=== PATIENT | female | born 1980 | race Caucasian/White ===

== ENCOUNTER 2019-11-05 06:59 | Emergency (ER) | payer MEDICAID, SELFPAY ==
[2019-11-05 07:02] VITALS: BP 156/98; PULSE 100; RESP 18; TEMP 36.9; O2SAT 97; BMI 43.4
--- NOTE | 2019-11-05 07:11 | CTR_ITS ---
PROCEDURE INFORMATION: Exam: CT Neck With Contrast Exam date and time: 11/05/2019 7:41 AM Age: 39 years old Clinical indication: Neck pain and painful swallowing and throat pain; Additional info: Trouble swallowing, L sided throat pain, hoarseness TECHNIQUE: Imaging protocol: Computed tomography images of the neck with intravenous contrast. Radiation optimization: All CT scans at this facility use at least one of these dose optimization techniques: automated exposure control; mA and/or kV adjustment per patient size (includes targeted exams where dose is matched to clinical indication); or iterative reconstruction. Contrast material: OMNI 300; Contrast volume: 95 ml; Contrast route: INTRAVENOUS (IV); COMPARISON: No relevant prior studies available. RADIATION DOSE METRICS: Total DLP (mGy-cm): 817 FINDINGS: Nasopharynx: Unremarkable. Oropharynx: There is a left tonsillar abscess measuring approximately 3.2 cm x 1.3 cm x 1.4 cm in size. This causes mass effect upon the posterolateral left oropharyngeal airway. Hypopharynx: See Retropharyngeal space finding. Larynx: Unremarkable. Normal epiglottis. Retropharyngeal space: There is a left posterolateral retropharyngeal abscess measuring approximately 2.4 cm x 8 mm x 5 mm in size. There is surrounding soft tissue edema/inflammation. This is causing compression of the left piriform sinus and posterolateral left hypopharyngeal airway. Submandibular/Parotid glands: Normal. Glands are normal in size. Thyroid: There is a 9 mm cyst or nodule in the right lobe of the thyroid. Lymph nodes: There is mild bilateral cervical lymphadenopathy, more prominently on the left, likely reactive in nature. Calcified right hilar and mediastinal lymph nodes from prior granulomatous disease. Trachea: The trachea has a normal caliber. Lungs: Calcified pulmonary granulomas in the right upper lobe. Bones/joints: No acute osseous abnormality. Vasculature: No carotid or vertebral artery stenosis or occlusion. Soft tissues: No acute superficial soft tissue abnormality. CT/CT neck w con* [id number] IMPRESSION: Left tonsillar and retropharyngeal abscess. COMMENTS: Consistent with the [employer]'s Incidental Findings Committee white paper (J Am Jocelyne Radiol 2015): In patients aged 35 years and older with an incidental thyroid nodule equal to or greater than 1.[address], MRI or extrathyroidal US, further evaluation with dedicated thyroid US is recommended for patients with normal life expectancy and without comorbidities. For smaller nodules without suspicious features, no further evaluation or follow up is recommended. Radiation Dose CTDIVOL = (mGy): DLP = 817 (mGy-cm)
--- NOTE | 2019-11-05 07:12 | ED_ITS ---
HPI - General Adult General: Chief complaint: Dental/Oral Stated complaint: SWOLLEN NECK MOVED UP TO EAR AND LEFT SIDE OF FACE Time Seen by Provider: 11/05/19 07:04 Course Vital Signs: Vital signs: Vital Signs Temperature 98.4 F 11/05/19 07:02 Pulse Rate 100 11/05/19 07:02 Respiratory Rate 18 11/05/19 07:02 Blood Pressure 156/98 11/05/19 07:02 Pulse Oximetry 97 11/05/19 07:02 Coding Level of Care Code ED Cost Report Clerk for Aquilino Tian
--- NOTE | 2019-11-05 07:13 | W.ED.DENTAL ---
HPI - Dental/Oral General: Chief complaint: Dental/Oral Stated complaint: SWOLLEN NECK MOVED UP TO EAR AND LEFT SIDE OF FACE Time Seen by Provider: 11/05/19 07:04 Source: patient Mode of arrival: ambulatory Limitations: no limitations History of Present Illness: HPI Narrative: Patient is a 39-year-old female who presents to ED today with a complaint of left-sided neck pain has been present for the past 4 to 5 days. Patient was initially seen at [facility] on and swabbed for strep which was negative. She was given oral steroids and discharged home. Patient states she feels like the left side of her neck is swollen as well as her face. She is having hoarseness. She tells me she is having difficulty swallowing. [facility] was supposed to set her up with ENT however she has not heard anything regarding this appointment. Patient reports radiation up into her left ear and into her teeth however she does not complain specifically of pain to these areas. She does report a similar episode several months ago. Onset (ago): day(s) Duration: constant Relieving factors: nothing Exacerbating factors: nothing Associated symptoms: Reports fever(s) (reports fever of 101 at 2am this morning ) and odynophagia; Denies ear or mastoid pain Review of Systems Const: Reports: fever(s) (reports fever of 101 at 2am this morning ); Denies: chills, body aches, change in appetite, change in weight, fatigue or malaise Eyes: Denies: change in vision, blurry vision, photophobia, floaters or seeing flashes ENMT: Reports: throat pain, odynophagia and hoarseness; Denies: swelling of lips/tongue, oral sores, dental pain, ear or mastoid pain, ear discharge, change in hearing, tinnitus, disequilibrium, nasal discharge, nasal congestion, epistaxis, post nasal drip or sinus pain Card: Denies: chest pain Resp: Denies: dyspnea GI: Denies: nausea or vomiting Musc: Denies: neck pain Skin/Breast: Denies: rash Neuro: Denies: headache(s), numbness in extremities, weakness in extremities or sensory changes Physical Exam Const: COMMON NORMALS: no acute distress, patient oriented x3, no limitations and alert NUTRITIONAL APPEARANCE: obese ORIENTATION/CONSCIOUSNESS: Yes awake, Yes oriented to person, Yes oriented to place and Yes oriented to time HENMT: COMMON NORMALS: normocephalic, atraumatic, hearing grossly normal bilaterally, external ears normal, EAC's normal, TM's normal bilaterally, Normal external nose present, Normal nasal mucous membranes and turbinates present, moist oral mucous membranes and gingiva normal HEAD & SCALP: normal to inspection, normocephalic and atraumatic FACE & SINUS: normal facial exam, sinuses nontender and face symmetric NOSE: Normal external nose present, Normal nares present, No nasal polyps present, Normal nasal mucous membranes and turbinates present and No nasal discharge present EXTERNAL EAR: Yes external ears normal EXTERNAL AUDITORY CANAL: EAC's normal TYMPANIC MEMBRANE: TM's normal bilaterally MOUTH: Normal oral and palatal mucosa present, lip normal, tongue normal and other (hoarseness ) THROAT: other (see below) OTHER: no swelling to soft palate appreciated; uvula is midline and non-swollen; she does appear to have some swelling to her posterior tonsillar pillar/posterior wall of oropharynx Eye: COMMON NORMALS: Equal, round and reactive pupils present, EOMs intact bilaterally, conjunctivae normal and no scleral icterus GENERAL EYE: appearance normal, both eyes and all related structures CONJUNCTIVA: Yes conjunctivae normal PUPIL: Yes Equal, round and reactive pupils present Neck/C-Spine: COMMON NORMALS: full ROM and no lymphadenopathy OTHER: I do not appreciate any neck swelling Neuro: ANDREW COMA SCALE: document GCS findings Andrew coma scale eye opening: Spontaneous Andrew coma scale verbal response: Orientated Hutchinson coma scale motor response: Obey commands Hutchinson coma scale total score: 15 COMMON NORMALS: patient oriented x3 and CN's II-XII intact bilaterally SENSORIUM/ORIENTATION: Yes alert, Yes oriented to person, Yes oriented to place and Yes oriented to time Skin: COMMON NORMALS: no rashes or lesions noted GENERAL SKIN EXAM: no rashes or lesions noted Course Consultations: Consultation #1: [facility]; recommends oral doxycycline and will see in office this week Vital Signs: Vital signs: Vital Signs Temperature 98.4 F 11/05/19 07:02 Pulse Rate 100 11/05/19 07:02 Respiratory Rate 18 11/05/19 07:02 Blood Pressure 156/98 11/05/19 07:02 Pulse Oximetry 97 11/05/19 07:02 MDM - Dental/Oral MDM Narrative: Medical decision making narrative: Clinically patient appears well. She has hoarseness to her voice but is otherwise speaking normally. She has been able to control her saliva and has continued to eat and drink. I have discussed CT findings with Dr. Dugan with [facility]. He feels this can be managed with oral doxycycline and will see her in office this week. Her vital signs are stable. She does have a white count of 20.9 some of that may be related to her recent steroid use. Strict return to ED precautions given. Lab Data: Labs: Lab Results 11/05/19 11/05/19 11/05/19 Range/Units 07:24 07:24 07:24 WBC 20.9 H (4.0-10.0) 10^3/ uL RBC 3.88 L (4.1-5.3) 10^6/u L Hgb 13.5 (11.5-15.3) g/dL Hct 40.7 (37.0-47.0) % MCV 104.9 H (81-99) fL MCH 34.8 H (28.0-34.0) pg MCHC 33.2 (30.0-36.0) g/dL RDW 12.7 (12.1-15.1) % Plt Count 267 (130-400) 10^3/c mm MPV 11.0 H (7.4-10.4) fL Neut % (Auto) 78.7 % Lymph % (Auto) 12.1 % Atlantic % (Auto) 8.2 % Eos % (Auto) 0.3 % Baso % (Auto) 0.2 % Neut # (Auto) 16.47 H (1.8-7.7) 10^3/u L Lymph # (Auto) 2.5 (0.8-4.8) 10^3/u L Atlantic # (Auto) 1.7 H (0.2-0.9) 10^3/u L Eos # (Auto) 0.1 (0.0-0.8) 10^3/u L Baso # (Auto) 0.1 (0.0-0.1) 10^3/u L Nucleated RBC % (a uto) 0 % Nucleated RBCs # 0.0 /100WBC Sodium 139 (136-145) mmol/L Potassium 4.1 (3.5-5.1) mmol/L Chloride 104 (98-107) mmol/L Carbon Dioxide 28 (22-29) mmol/L Anion Gap 11.1 (5-19) BUN 9 (6-20) mg/dL Creatinine 0.9 (0.5-0.9) mg/dL GFR Calculation 70.1 L (90-130) mL/min Glucose 120 H (65-115) mg/dL Calculated Osmolal ity 285 (285-295) mOsm/k g Lactic Acid 1.3 (0.5-2.2) mmol/L Calcium 9.5 (8.5-10.5) mg/dL Total Bilirubin 0.8 (0.15-1.2) mg/dL AST 13 (0-32) U/L ALT 14 (0-33) U/L Alkaline Phosphata se 81 (35-105) IU/L Total Protein 7.1 (6.6-8.7) g/dL Albumin 4.0 (3.5-5.2) g/dL Globulin 3.1 (1.3-4.6) g/dL Imaging Data^: CT facial: Radiologist's impression: [place] [address] CT Scan Report Signed Patient: Cady Cuellar Unit #: [id number] : 1980 Age/Sex: 39 / F ADM Date: 11/05/19 Loc: ER Room/Bed: Attending Dr: Ordering Provider/Ordering MD: Cathi Pollock Date of Service: 11/05/19 Procedure(s): CT neck w con* [id number] Accession Number(s): [id number] Report Number: [id number] PROCEDURE INFORMATION: Exam: CT Neck With Contrast Exam date and time: 11/05/2019 7:41 AM Age: 39 years old Clinical indication: Neck pain and painful swallowing and throat pain; Additional info: Trouble swallowing, L sided throat pain, hoarseness TECHNIQUE: Imaging protocol: Computed tomography images of the neck with intravenous contrast. Radiation optimization: All CT scans at this facility use at least one of these dose optimization techniques: automated exposure control; mA and/or kV adjustment per patient size (includes targeted exams where dose is matched to clinical indication); or iterative reconstruction. Contrast material: OMNI 300; Contrast volume: 95 ml; Contrast route: INTRAVENOUS (IV); COMPARISON: No relevant prior studies available. RADIATION DOSE METRICS: Total DLP (mGy-cm): 817 FINDINGS: Nasopharynx: Unremarkable. Oropharynx: There is a left tonsillar abscess measuring approximately 3.2 cm x 1.3 cm x 1.4 cm in size. This causes mass effect upon the posterolateral left oropharyngeal airway. Hypopharynx: See Retropharyngeal space finding. Larynx: Unremarkable. Normal epiglottis. Retropharyngeal space: There is a left posterolateral retropharyngeal abscess measuring approximately 2.4 cm x 8 mm x 5 mm in size. There is surrounding soft tissue edema/inflammation. This is causing compression of the left piriform sinus and posterolateral left hypopharyngeal airway. Submandibular/Parotid glands: Normal. Glands are normal in size. Thyroid: There is a 9 mm cyst or nodule in the right lobe of the thyroid. Lymph nodes: There is mild bilateral cervical lymphadenopathy, more prominently on the left, likely reactive in nature. Calcified right hilar and mediastinal lymph nodes from prior granulomatous disease. Trachea: The trachea has a normal caliber. Lungs: Calcified pulmonary granulomas in the right upper lobe. Bones/joints: No acute osseous abnormality. Vasculature: No carotid or vertebral artery stenosis or occlusion. Soft tissues: No acute superficial soft tissue abnormality. CT/CT neck w con* [id number] IMPRESSION: Left tonsillar and retropharyngeal abscess. COMMENTS: Consistent with the [employer]'s Incidental Findings Committee white paper (J Am Jocelyne Radiol 2015): In patients aged 35 years and older with an incidental thyroid nodule equal to or greater than 1.[address], MRI or extrathyroidal US, further evaluation with dedicated thyroid US is recommended for patients with normal life expectancy and without comorbidities. For smaller nodules without suspicious features, no further evaluation or follow up is recommended. Radiation Dose CTDIVOL = (mGy): DLP = 817 (mGy-cm) Dictated By: Ger Palmer Signed By: Ger Palmer Signed Date/Time: 11/05/19830 DD/ 9 Discharge Plan Discharge Patient Disposition: Home Clinical Impression: Abscess, retropharyngeal, Tonsillar abscess Condition: Stable Prescriptions: New doxycycline monohydrate 100 mg capsule 100 mg PO Q12H 10 Days Qty: 20 RF: 0 Discharge Orders: Discharge Order (Routine); Ordered 11/05/19 Ordered By: Cathi Pollock Activity Restrictions/Additional Instructions: Fill your antibiotics and begin them immediately. You need to return to the emergency department immediately for trouble swallowing, inability to control your own saliva, or inability to eat or drink. [facility] should be contacting you shortly to set you up with an appointment for next week with Dr. Dugan. Coding Level of Care Code ED In Store Marketer for [place] Fwd Exam Detailed
[2019-11-05 07:30] LABS: Basophils # 0.1 10^3/uL (0.0-0.1); Basophils % 0.2 %; Eosinophils # 0.1 10^3/uL (0.0-0.8); Eosinophils % 0.3 %; Hematocrit 40.7 % (37.0-47.0); Hemoglobin 13.5 g/dL (11.5-15.3); Lymphocytes # 2.5 10^3/uL (0.8-4.8); Lymphocytes % 12.1 %; Mean Corpuscular HGB Conc 33.2 g/dL (30.0-36.0); Mean Corpuscular Hemoglobin 34.8 pg (28.0-34.0); Mean Corpuscular Volume 104.9 fL (81-99); Monocytes # 1.7 10^3/uL (0.2-0.9); Monocytes % 8.2 %; Neutrophils # 16.47 10^3/uL (1.8-7.7); Neutrophils % 78.7 %; Nucleated Red Blood Cells % 0 %; Platelet Count 267 10^3/cmm (130-400); Red Blood Count 3.88 10^6/uL (4.1-5.3); Red Cell Distribution Width 12.7 % (12.1-15.1); White Blood Count 20.9 10^3/uL (4.0-10.0)
[2019-11-05] MEDS: dexamethasone 10 mg/mL INJ 8 MG IV (07:38)
[2019-11-05 07:50] LABS: Alanine Aminotransferase 14 U/L (0-33); Alkaline Phosphatase 81 IU/L (35-105); Anion Gap 11.1 (5-19); Aspartate Amino Transferase 13 U/L (0-32); Blood Urea Nitrogen 9 mg/dL (6-20); Calcium 9.5 mg/dL (8.5-10.5); Carbon Dioxide 28 mmol/L (22-29); Chloride 104 mmol/L (98-107); Globulin 3.1 g/dL (1.3-4.6); Glomerular Filtration Rate 70.1 mL/min (90-130); Glucose 120 mg/dL (65-115); Osmolality Calculated 285 mOsm/kg (285-295); Potassium 4.1 mmol/L (3.5-5.1); Sodium 139 mmol/L (136-145); Total Bilirubin 0.8 mg/dL (0.15-1.2); Total Protein 7.1 g/dL (6.6-8.7)
[2019-11-05] MEDS: iohexol 300 mg/mL 100 mL Btl IV (08:02)
[2019-11-05 08:38] LABS: Lactic Sepsis W/Reflex 1.3 mmol/L (0.5-2.2)
[2019-11-05] MEDS: piperacillin-tazobactam 3.375 GM in sodium chloride 0.9% (plus) 50 ML IV (09:22)
[2019-11-05 09:58] VITALS: BP 125/80; PULSE 85; RESP 18; O2SAT 99
== END 2019-11-05 10:00 | disposition home or self-care (01) ==
PROVIDERS: Emergency Provider Physician Assistant
DX: J36 Peritonsillar abscess (principal)
CPT/HCPCS: 12345; 36415; 70491; 80053; 83605; 85025; 87040; 96365; 96375; 99283; J1100; J2543; Q9967

== ENCOUNTER 2019-11-08 15:57 | Outpatient (CLI) | payer MEDICAID, SELFPAY ==
--- NOTE | 2019-11-08 16:02 | CT_ITS ---
WS: [id number] CT NECK TECHNIQUE: Contrast-enhanced CT of the neck with coronal and sagittal reformatted images. CLINICAL INFORMATION: PERITONSILLAR ABSCESS, RETRPHARYNGEAL AND PARPHARNGEAL ABSCE COMPARISON: November 05, 2019 DLP: 2802.[address] scans at [facility] use at least one of these dose optimization techniques: automat ed exposure control; mA and/or kV adjustment per patient size (includes targeted exams where dose is matched to clinical indication); or iterative reconstruction. FINDINGS: Again seen is the left tonsillar and retropharyngeal abscess which is decreased in size since the yg or examination a November 26, 2017. Today the enhancing left tonsillar abscess measures approxima tely 0.7 x 0.9 x 1.8 cm. Left retropharyngeal abscess has significantly improved with retropharyngeal component significant smaller measuring 1.3 x 0.6 x 1.0 cm. Retropharyngeal fluid has improved. Impr liliana surrounding inflammatory stranding in the surrounding soft tissues. Persistent but improved mild mass effect on the oropharynx and hypopharynx. Partial effacement of the piriform sinus is improved. No critical airway stenosis. Normal epiglottis. Subglottic airway is patent. Small right thyroid nodule unchanged. Reactive cervic al lymph nodes. Mastoid air cells and paranasal sinuses are well aerated. Lung apices are well aerate d. Calcified granuloma right upper lobe. CT/CT neck w con* [id number] IMPRESSION: 1. Improving tonsillar and retropharyngeal abscess as described above. 2. Persistent but improved mass effect on the oropharynx and adjacent pharynge al soft tissues. No critical airway stenosis. 3. Small amount of retropharyngeal fluid extending down to C4-5 level. Normal mediastinum. 4. Small right thyroid nodule unchanged. 5. Reactive cervical lymphadenopathy.
[2019-11-08] MEDS: iohexol 300 mg/mL 100 mL Btl IV (16:18)
== END 2019-11-08 15:58 | disposition home or self-care (01) ==
LOC: RADWPI 16:00
PROVIDERS: PCP Internal Medicine; Visit Provider Otolaryngology
DX: J36 Peritonsillar abscess (principal); J39.2 Other diseases of pharynx; E04.1 Nontoxic single thyroid nodule; R59.0 Localized enlarged lymph nodes
CPT/HCPCS: 70491; Q9967

== ENCOUNTER 2019-12-01 14:03 | Outpatient (CLI) | payer MEDICAID, SELFPAY ==
--- NOTE | 2019-12-01 14:08 | CT_ITS ---
WS: [id number] CT NECK WITH CONTRAST HISTORY: PERITONSILLAR ABSCESS TECHNIQUE: Contiguous 5 mm axial images are performed through the neck with intravenous contrast. Sag ittal and coronal reformats are also submitted. All CT scans at [facility] use at least o ne of these dose optimization techniques: automated exposure control; mA and/or kV adjustment per pat ient size (includes targeted exams where dose is matched to clinical indication); or iterative recons truction. CONTRAST: CONTRAST: Omnipaque 300; 95 mL IV. DLP: 2891.28 mGycm COMPARISON: 11/08/2019 Previously described LEFT tonsillar peritonsillar retropharyngeal abscess and mass effect have resolv ed. Symmetric appearance to the parapharyngeal and retropharyngeal soft tissues. There is no enhancin g mass or residual fluid collection. Torus tubarius and fossa of Rosenmuller and parapharyngeal fat are normal. Small benign-appearing cervical chain lymph nodes. Most concerning lymph node is rounded and of decre ased attenuation measuring 7 mm at the level of the LEFT thyroid cartilage. Decreased in size since t he prior study. Mildly enlarged thyroid. Small RIGHT thyroid nodule. No osseous abnormalities. Visualized portions of the skull base demonstrate no abnormalities. Orbits and globes are within norm al limits. No soft tissue masses. Visualized paranasal sinuses and mastoid air cells are normal. Benign granuloma RIGHT apex. CT/CT neck w con* [id number] IMPRESSION: 1. Interval complete resolution of the LEFT tonsil, peritonsillar and retropha ryngeal abscess. 2. No compromise of the airway. 3. No worsening or adenopathy.
[2019-12-01] MEDS: iohexol 300 mg/mL 100 mL Btl IV (14:49)
== END 2019-12-01 14:04 | disposition home or self-care (01) ==
PROVIDERS: PCP Internal Medicine; Visit Provider Specialist
DX: J36 Peritonsillar abscess (principal)
CPT/HCPCS: 70491; Q9967

== ENCOUNTER 2019-12-29 20:00 | Outpatient (CLI) | payer MEDICAID, SELFPAY | END 2019-12-29 20:01 | disposition home or self-care (01) | LOC: SLEEP 12-30 08:41 | PROVIDERS: PCP Internal Medicine; Visit Provider Internal Medicine | DX: R06.83 Snoring (principal); R53.83 Other fatigue; G47.33 Obstructive sleep apnea (adult) (pediatric) | CPT/HCPCS: 95810 ==

== ENCOUNTER 2020-12-07 21:05 | Emergency (ER) | payer MEDICAID, SELFPAY ==
[2020-12-07 22:09] VITALS: BP 134/80; PULSE 92; RESP 18; TEMP 39.3; O2SAT 95; BMI 48.6
[2020-12-07] MEDS: acetaminophen 500 mg Tablet 1000 MG PO (22:18)
--- NOTE | 2020-12-07 22:27 | ECG_ITS ---
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 f
--- NOTE | 2020-12-08 00:52 | XRR_ITS ---
PROCEDURE INFORMATION: Exam: XR Chest Exam date and time: 12/08/2020 12:52 AM Age: 40 years old Clinical indication: Shortness of breath; Additional info: Fever, short of breath TECHNIQUE: Imaging protocol: XR of the chest. Views: 1 view. COMPARISON: CT neck w con* [id number] 12/01/2019 2:47 PM FINDINGS: Lungs: There is consolidation at the medial lung bases bilaterally which may be pneumonia. The lungs are otherwise clear. Pleural spaces: Unremarkable. No pleural effusion. No pneumothorax. Heart/Mediastinum: Unremarkable. No cardiomegaly. Bones/joints: Unremarkable. XR/XR chest 1V portable [id number] IMPRESSION: Possible bilateral medial lung base pneumonia.
--- NOTE | 2020-12-08 00:57 | ED_ITS ---
HPI - SOB/Dyspnea General: Chief Complaint: Shortness of Breath/Dyspnea Stated Complaint: Covid Symptoms Time Seen by Provider: 12/08/20 00:51 History of Present Illness: HPI Narrative: 40-year-old female comes in today with complaints of fever on and off for about 1 week. Patient believes she may have COVID-19. Patient started having some shortness of breath today. Patient appears well. Patient appears no acute distress. Associated symptoms: Reports fever(s) Review of Systems General: Reports: 10 or more systems reviewed and unremarkable except in HPI and below Const: Reports: fever(s) Resp: Reports: dyspnea PFSH ED PFSH: Medical History High cholesterol Surgical History H/O tubal ligation [place] teeth removed Family History Other Diabetes Heart attack Hypertension Social History Smoking and tobacco status: never smoked Current occupational status: employed Current occupation: [employer] Physical Exam Const: COMMON NORMALS: no acute distress and patient oriented x3 GENERAL APPEARANCE: cooperative HENMT: COMMON NORMALS: normocephalic, TM's normal bilaterally and Normal external nose present HEAD & SCALP: normal to inspection and normocephalic NOSE: Normal external nose present TYMPANIC MEMBRANE: TM's normal bilaterally MOUTH: Normal oral and palatal mucosa present Eye: GENERAL EYE: appearance normal, both eyes and all related structures Neck/C-Spine: COMMON NORMALS: full ROM Chest: COMMONS NORMALS: normal inspection of the chest Resp: COMMON NORMALS: normal respiratory effort EFFORT & INSPECTION: Yes able to speak in complete sentences Cardio: COMMON NORMALS: regular rate and regular rhythm RATE: regular rate RHYTHM: regular rhythm GI: COMMON NORMALS: non-tender : COMMON NORMALS: Yes no CVA tenderness BLADDER/KIDNEY EXAM: Yes no CVA tenderness Back/Pelvis: COMMON NORMALS: no CVA tenderness and thoracic and lumbar spine normal to inspection Extremity: COMMON NORMALS: normal to inspection Neuro: COMMON NORMALS: patient oriented x3 and moves all extremities Psych: COMMON NORMALS: mental status grossly normal and cooperative Skin: COMMON NORMALS: no rashes or lesions noted GENERAL SKIN EXAM: no rashes or lesions noted Course Vital Signs: Vital signs: Vital Signs Temperature 102.8 F H 12/07/20 22:09 Pulse Rate 89 12/08/20 01:30 Respiratory Rate 17 12/08/20 01:30 Blood Pressure 110/63 12/08/20 01:30 Pulse Oximetry 97 12/08/20 01:30 MDM - SOB/Dyspnea MDM Narrative: Medical decision making narrative: Patient comes in today for complaints of fever on and off for the last week. Patient reported some chills or chest discomfort today along with fever. Patient was concerned she may have had COVID-19. On exam lungs are clear to auscultation. Skin is warm and dry. Vital signs are normal except for elevated temperature of 102.8. Differential diagnosis includes pneumonia, COVID-19, viral syndrome. Pneumonia was noted on chest x-ray in bilateral [place]. COVID-19 test was negative. Laboratory values were unremarkable. Most likely this is a viral pneumonia probable COVID-19. We will send off a Covid PCR test for further evaluation. Patient be started on doxycycline to cover for a bacterial pneumonia. Patient was given 10 mg of dexamethasone chest discomfort. Patient was encouraged to drink plenty of fluids and use acetaminophen and ibuprofen for discomfort. Patient reported understanding agreed to plan. Albuterol was also prescribed for patient to help with cough and wheezing. Lab Data: Labs: Lab Results 12/08/20 12/08/20 12/08/20 00:57 02:00 02:13 WBC 4.9 10^3/uL 10^3/ uL (4.0-10.0) RBC 4.30 10^6/uL 10^6 /uL (4.1-5.3) Hgb 14.3 g/dL g/dL (11.5-15.3) Hct 43.1 % % (37.0-47.0) MCV 100.2 fl H fl (81-99) MCH 33.3 pg pg (28.0-34.0) MCHC 33.2 g/dL g/dL (30.0-36.0) RDW 13.2 % % (12.1-15.1) Plt Count 171 10^3/cmm 10^3 /cmm (130-400) MPV 11.7 fL H fL (7.4-10.4) Neut % (Auto) 64.1 % % Lymph % (Auto) 28.6 % % [place] % (Auto) 5.7 % % Eos % (Auto) 0.6 % % Baso % (Auto) 0.6 % % Neut # (Auto) 3.13 10^3/uL 10^3 /uL (1.8-7.7) Lymph # (Auto) 1.4 10^3/uL 10^3/ uL (0.8-4.8) [place] # (Auto) 0.3 10^3/uL 10^3/ uL (0.2-0.9) Eos # (Auto) 0.0 10^3/uL 10^3/ uL (0.0-0.8) Baso # (Auto) 0.0 10^3/uL 10^3/ uL (0.0-0.1) Nucleated RBC % (a uto) 0 % % Nucleated RBCs # 0.0 /100WBC /100W BC Sodium Potassium Chloride Carbon Dioxide Anion Gap BUN Creatinine GFR Calculation Glucose Calculated Osmolal ity Calcium Total Bilirubin AST ALT Alkaline Phosphata se C-Reactive Protein Total Protein Albumin Globulin Urine Color Yellow (Yellow) Urine Appearance Sl cloudy A (CLEAR) Urine pH 5 (5-7) Ur Specific Gravit y 1.015 (1.005-1.030) Urine Protein Neg (Negative) Urine Glucose (UA) Norm (Normal) Urine Ketones Negative (Negative) Urine Blood Neg (Negative) Urine Nitrate Negative (Negative) Urine Bilirubin Neg (Negative) Urine Urobilinogen Norm mg/dL mg/dL (Negative) Ur Leukocyte Malathi ase Negative (Negative) Urine RBC 0-4 /hpf H /hpf (0-2) Urine WBC 0-4 /hpf H /hpf (0-5) Ur Squamous Epith Cells 40-55 /hpf H /hpf (0-5) Amorphous Sediment Not Reportable Urine Bacteria 3+ /hpf H /hpf (NONE) SARS-CoV-2 Ag (Rap id) Negative (Negative) 12/08/20 02:13 WBC RBC Hgb Hct MCV MCH MCHC RDW Plt Count MPV Neut % (Auto) Lymph % (Auto) [place] % (Auto) Eos % (Auto) Baso % (Auto) Neut # (Auto) Lymph # (Auto) [place] # (Auto) Eos # (Auto) Baso # (Auto) Nucleated RBC % (a uto) Nucleated RBCs # Sodium 137 mmol/L mmol/L (136-145) Potassium 3.8 mmol/L mmol/L (3.5-5.1) Chloride 101 mmol/L mmol/L (98-107) Carbon Dioxide 24 mmol/L mmol/L (22-29) Anion Gap 15.8 (5-19) BUN 10 mg/dL mg/dL (6-20) Creatinine 0.7 mg/dL mg/dL (0.5-0.9) GFR Calculation 93.2 mL/min mL/mi n (90-130) Glucose 84 mg/dL mg/dL (65-115) Calculated Osmolal ity 282 mOsm/kg L mOs m/kg (285-295) Calcium 8.6 mg/dL mg/dL (8.5-10.5) Total Bilirubin 0.7 mg/dL mg/dL (0.15-1.2) AST 31 U/L U/L (0-32) ALT 24 U/L U/L (0-33) Alkaline Phosphata se 82 IU/L IU/L (35-105) C-Reactive Protein 30.4 mg/L H mg/L (0.0-4.9) Total Protein 7.3 g/dL g/dL (6.6-8.7) Albumin 3.9 g/dL g/dL (3.5-5.2) Globulin 3.4 g/dL g/dL (1.3-4.6) Urine Color Urine Appearance Urine pH Ur Specific Gravit y Urine Protein Urine Glucose (UA) Urine Ketones Urine Blood Urine Nitrate Urine Bilirubin Urine Urobilinogen Ur Leukocyte Malathi ase Urine RBC Urine WBC Ur Squamous Epith Cells Amorphous Sediment Urine Bacteria SARS-CoV-2 Ag (Rap id) Discharge Plan Discharge Patient Disposition: Home Clinical Impression: Bilateral pneumonia Qualifiers: Pneumonia type: due to unspecified organism Lung location: lower lobe of lung Qualified Code(s): J18.9 - Pneumonia, unspecified organism Condition: Stable Prescriptions: New doxycycline monohydrate 100 mg capsule 100 mg PO BID 7 Days Qty: 14 RF: 0 No Action atorvastatin 40 mg tablet 40 mg PO DAILY RF: 0 silver sulfadiazine 1 % cream 1 applic topical BID 14 Days Qty: 50 RF: 0 cephalexin 500 mg capsule 500 mg PO TID 7 Days Qty: 21 RF: 0 Discharge Orders: Discharge ED (Routine); Ordered 12/08/20 Ordered By: Aj Shah Discharge Diet: Usual diet Discharge Activity: Increase activity as tolerated Patient Instructions: Pneumonia (ED), Opioid Safety Activity Restrictions/Additional Instructions: Home and rest. Drink plenty of fluids. Use albuterol 2 puffs every 4 hours as needed for shortness of breath or cough. Take antibiotic doxycycline 100 mg twice a day for the next 7 days. Follow-up with primary care in 1 week for recheck. You have an outstanding COVID-19 PCR test. If the test result comes back positive you may still qualify for monoclonal antibodies and you can return to the ER or follow-up with primary care for administration information. Return to the ER for new concerns or worsening symptoms. Coding Level of Care Code ED [place] [employer] for [place] Fwd Exam Comprehensive
[2020-12-08 01:30] VITALS: BP 110/63; PULSE 89; RESP 17; O2SAT 97
[2020-12-08 01:33] LABS: SARS Covid-2 Antigen Negative (Negative)
[2020-12-08] MEDS: sodium chloride 0.9% 1,000 ML 999 ML IV (02:23)
[2020-12-08 02:47] LABS: Alanine Aminotransferase 24 U/L (0-33); Albumin Level 3.9 g/dL (3.5-5.2); Alkaline Phosphatase 82 IU/L (35-105); Anion Gap 15.8 (5-19); Aspartate Amino Transferase 31 U/L (0-32); Blood Urea Nitrogen 10 mg/dL (6-20); C Reactive Protein 30.4 mg/L (0.0-4.9); Calcium 8.6 mg/dL (8.5-10.5); Carbon Dioxide 24 mmol/L (22-29); Chloride 101 mmol/L (98-107); Creatinine Clr Calc Pharmacy 138.5442; Globulin 3.4 g/dL (1.3-4.6); Glomerular Filtration Rate 93.2 mL/min (90-130); Glucose 84 mg/dL (65-115); Osmolality Calculated 282 mOsm/kg (285-295); Potassium 3.8 mmol/L (3.5-5.1); Sodium 137 mmol/L (136-145); Total Bilirubin 0.7 mg/dL (0.15-1.2); Total Protein 7.3 g/dL (6.6-8.7)
[2020-12-08 02:47] LABS: Add Urine Microscopic? YES; Bilirubin Urine Neg (Negative); Blood Urine Neg (Negative); Glucose Urine UA Norm (Normal); Ketones Urine Negative (Negative); Leukocyte Esterase Urine Negative (Negative); Nitrate Urine Negative (Negative); Protein Urine Neg (Negative); Specific Gravity, Urine 1.015 (1.005-1.030); Urine Color Yellow (Yellow); Urobilinogen Urine Norm (Negative); pH Urine 5 (5-7)
[2020-12-08 02:48] LABS: Add Urine Culture? No; Bacteria Urine 3+ /hpf; RBC Urine 0-4 /hpf (0-2); Squamous Epithelial Cell Urine 40-55 /hpf (0-5); WBC Urine 0-4 /hpf (0-5)
[2020-12-08 02:56] LABS: Basophils % 0.6 %; Eosinophils % 0.6 %; Hematocrit 43.1 % (37.0-47.0); Hemoglobin 14.3 g/dL (11.5-15.3); Lymphocytes # 1.4 10^3/uL (0.8-4.8); Lymphocytes % 28.6 %; Mean Corpuscular HGB Conc 33.2 g/dL (30.0-36.0); Mean Corpuscular Hemoglobin 33.3 pg (28.0-34.0); Mean Corpuscular Volume 100.2 fl (81-99); Mean Platelet Volume 11.7 fL (7.4-10.4); Monocytes # 0.3 10^3/uL (0.2-0.9); Monocytes % 5.7 %; Neutrophils # 3.13 10^3/uL (1.8-7.7); Neutrophils % 64.1 %; Nucleated Red Blood Cells % 0 %; Platelet Count 171 10^3/cmm (130-400); Red Cell Distribution Width 13.2 % (12.1-15.1); White Blood Count 4.9 10^3/uL (4.0-10.0)
[2020-12-08] MEDS: dexamethasone 10 mg/mL INJ IVP (03:06)
[2020-12-08 03:26] VITALS: BP 130/74; PULSE 84; RESP 16; O2SAT 99
[2020-12-09 16:29] LABS: Quest SARS-CoV-2 RNA DETECTED (NOT DETECTED)
--- NOTE | 2020-12-10 08:56 | PC.NURSE ---
Informed pt of Positive COVID test
== END 2020-12-08 03:20 | disposition home or self-care (01) ==
PROVIDERS: Emergency Provider Nurse Practitioner Family
DX: U07.1 COVID-19 (principal); J12.82 Pneumonia due to coronavirus disease 2019
CPT/HCPCS: 71045; 80053; 81001; 85025; 86140; 87426; 87635; 93005; 96361; 96374; 99283; J1100; J3535; J7030

== ENCOUNTER → 2021-01-23 11:21 | Outpatient (BNVA) | payer MEDICAID, SELFPAY | PROVIDERS: Visit Provider Podiatrist Foot & Ankle Surgery | DX: M25.571 Pain in right ankle and joints of right foot (principal) | CPT/HCPCS: 73630 ==

== ENCOUNTER 2021-01-30 09:13 | Outpatient (CLI) | payer MEDICAID, SELFPAY ==
--- NOTE | 2021-01-30 09:21 | US_ITS ---
WS: [id number] Complete ABDOMINAL ULTRASOUND HISTORY: PANCREATIC LESION COMPARISON: None available. Liver: 18.0 cm in length. Increased echogenicity and coarse echotexture throughout the liver. Poor pe netration. Gallbladder: Normally distended with no gallstones, wall thickening or pericholecystic fluid. Gallbladder wall thickness: 0.2 cm. Pancreas: Pancreas is normal size. Very mild surface irregularity. There is no mass or abnormality al lyla the duct. Pancreatic duct is normal size. CBD: 0.4 cm. Right kidney: 11.9 cm x 6.4 cm x 5.2 cm. No mass, cortical thickening or hydronephrosis. Left kidney: 9.7 cm x 5.9 cm x 4.6 cm. No mass, cortical thickening or hydronephrosis. Spleen: Normal size and echogenicity. Abdominal aorta and IVC are within normal limits. No ascites. US/US abdomen complete* [id number] IMPRESSION: 1. Unremarkable pancreas. No pancreatic lesion is identified. As per history t here is a prior CT which indicated pancreatic lesion. Consider dedicated follow -up CT imaging of the pancreas. 2. Normal gallbladder. 3. Mild hepatic steatosis and hepatomegaly.
== END 2021-01-30 09:14 | disposition home or self-care (01) ==
LOC: RAD 09:15
PROVIDERS: PCP Family Medicine; Visit Provider Family Medicine
DX: K86.9 Disease of pancreas, unspecified (principal); K76.0 Fatty (change of) liver, not elsewhere classified; R16.0 Hepatomegaly, not elsewhere classified
CPT/HCPCS: 76700; 93976

== ENCOUNTER 2021-06-20 08:12 | Outpatient (CLI) | payer MEDICAID, SELFPAY ==
--- NOTE | 2021-06-20 08:26 | CT_ITS ---
WS: [id number] CT ABDOMEN AND PELVIS WITH CONTRAST HISTORY: PANCREATIC LESION TECHNIQUE: Imaging performed of the abdomen and pelvis with IV contrast. Single phase imaging of the abdomen. Coronal and sagittal reformats are submitted. All CT scans at [facility] use at [address] one of these dose optimization techniques: automated exposure control; mA and/or kV adjustment per patient size (includes targeted exams where dose is matched to clinical indication); or iterative re construction. IV CONTRAST: Omnipaque 300; 95 mL IV. Oral contrast: Yes. DLP: 1186.41 mGy.cm COMPARISON: None available. Lower thorax: Lung bases are clear. Heart is normal size. No hiatal hernia. Liver/biliary system: Moderate enlargement of the liver. There is mild hepatic steatosis but no mass identified. Normal enhancement of the portal vein. Gallbladder: Normal. No gallstones or wall thickening. No pericholecystic fluid. Pancreas: Normal size pancreas and pancreatic duct. No mass identified. No adjacent inflammation. Spleen: Normal size with granulomata. Adrenal glands: Normal. Right kidney: Normal. Left kidney: 9.9 cm in length. Focal scar and cortical thinning with cyst upper pole. Nonobstructing 3 mm calcification lower pole. Aorta: Normal. Normal size and enhancement of the proximal mesenteric arteries. Lymphadenopathy: None. Free fluid: None. GI tract: Well-distended stomach. No thickening of the stomach wall. No small bowel obstruction. The appendix is normal. There are a few scattered diverticula in the distal colon with no acute diverticu litis. Abdominal wall: Unremarkable abdominal wall. No hernia. Pelvis: No free fluid or adenopathy within the pelvis. Bilateral small ovarian follicles. Bones: Unremarkable. CT/CT abdomen pelvis w con* [id number] IMPRESSION: 1. No pancreatic lesion identified. Pancreas is normal size and density. No pa ncreatic duct dilatation. 2. Moderate hepatomegaly and hepatic steatosis.
[2021-06-20] MEDS: iohexol 300 mg/mL 100 mL Btl IV (09:22)
[2021-06-20] MEDS: iohexol 300 mg/mL 50 mL Btl PO (09:23)
== END 2021-06-20 08:13 | disposition home or self-care (01) ==
LOC: RAD 08:14
PROVIDERS: PCP Family Medicine; Visit Provider Family Medicine
DX: K86.9 Disease of pancreas, unspecified (principal); R16.0 Hepatomegaly, not elsewhere classified; K76.0 Fatty (change of) liver, not elsewhere classified
CPT/HCPCS: 74177

== ENCOUNTER 2022-07-16 06:03 | Outpatient (CLI) | payer MEDICAID, SELFPAY ==
--- NOTE | 2022-07-16 06:15 | US_ITS ---
WS: [id number] RIGHT UPPER QUADRANT ULTRASOUND HISTORY: abd pain COMPARISON: 06/20/2021 CT, prior abdomen ultrasound 01/30/2021 Liver: 18.7 cm in length. Mild hepatomegaly and hepatic steatosis. Normal size liver with no bile kayden t dilatation. Portal Vein: Normal hepatopetal flow with monophasic waveform. Gallbladder: Normally distended gallbladder with no stones or wall thickening. CBD: 0.4 cm Pancreas: Normal size and echogenicity. Right kidney: 11.5 cm in length. Normal size and echogenicity. No hydronephrosis or mass. Aorta and IVC: Unremarkable abdominal aorta and IVC. No ascites. US/US gall bladder [id number] IMPRESSION: 1. Normal gallbladder. 2. No bile duct dilatation. 3. Mild hepatic steatosis and hepatomegaly. Very similar to the study from .
== END 2022-07-16 06:04 | disposition home or self-care (01) ==
PROVIDERS: PCP Family Medicine; Visit Provider Surgery
DX: R10.13 Epigastric pain (principal); K76.0 Fatty (change of) liver, not elsewhere classified
CPT/HCPCS: 76705